=== PATIENT | male | born 1970 | race Asian ===

== ENCOUNTER 2023-07-24 08:40 | Outpatient (AMB) | payer OTHER, SELFPAY ==
[2023-07-24 08:55] VITALS: BP 128/80; PULSE 76; O2SAT 99; BMI 23.6
--- NOTE | 2023-07-24 08:55 | MHC.PC.OV ---
Vital Signs 07/24/23 08:55 Height 5 ft 1 in Weight 125 lb BMI 23.6 BP 128/80 Blood Pressure Location Lt brachial Position Sitting Pulse 76 Pulse Source Pulse Oximeter Pulse Oximetry (%) 99 Oxygen Delivery Method Room Air Intake Visit Reasons: New patient-requesting physical Allergies No Known Allergies Allergy (Verified 07/24/23 09:08) Medication List - Last Reconciled 07/24/23 by BRIDGETT Joseph biotin mcg PO Tobacco use date assessed: 07/24/23 Dental Screening Dental Screen Date: 07/24/23 Did you have a dental visit in the last 12 months?: Yes Did you have a dental problem in the last 6 months where you did not have access to dental care?: No Was dental information given to patient?: Patient has dentist HPI HPI Comments History of Present Illness Details 53-year-old Female new patient presents today to establish care. Past medical history significant for Eye exam: Recommended every couple years. Pap smear: Order entered to establish care with gusset maker, Last pap 5 years ago Mammogram: Patient reports years ago, order entered. Colonoscopy: Patient reports has never had colonoscopy, states she is nervous to have done. Patient offered Cologuard screening and agreeable to this. Order entered. TD:unknown, will request immunization records. Previous pcp: [facility]. [facility] Family History Mother No problems noted. Father No problems noted. Sister No problems noted. Sister No problems noted. Sister No problems noted. Brother No problems noted. Brother No problems noted. Daughter No problems noted. Daughter No problems noted. Daughter No problems noted. Social History (Updated 07/24/23 @ 09:10 by BRIDGETT Joseph) Housing: House Alcohol intake: never Patient Tobacco Use Status: Never used Tobacco e-Cigarette/Vaping Use: Never Used Second Hand Smoke Exposure: No Current occupational status: employed Cognitive needs: No Hearing needs: No Vision needs: Yes Questionnaire PHQ-9 Over the last 2 weeks, how often have you been bothered by any of the following problems? 1. Little interest or pleasure in doing things: not at all 2. Feeling down, depressed, or hopeless: not at all 3. Trouble falling or staying asleep, or sleeping too much: not at all 4. Feeling tired or having little energy: not at all 5. Poor appetite or overeating: not at all 6. Feeling bad about yourself - or that you are a failure or have let yourself or your family down: not at all 7. Trouble concentrating on things, such as reading the newspaper or watching television: not at all 8. Moving or speaking so slowly that other people could have noticed. Or the opposite - being so fidgety or restless that you have been moving around a lot more than usual: not at all 9. Thoughts that you would be better off or of hurting yourself in some way: not at all Total score: 0 Depression Screening Interpretation: Negative 81966 - PHQ-9 Billing: Yes Source: Developed by Drs. Nicolas Garcia, Honey Castañeda, Sedrick Amaya and colleagues, with an educational bipin from [employer]. Thrive Questionnaire Date Thrive assessed: 07/24/23 I am a: Patient What is your living situation today?: I have a steady place to live Within the past 12 months, did the food you bought not last and you didn't have the money to get more?: Never true Within the past 12 months, did you worry whether your food would run out before you got money to buy more?: Never true Do you have trouble paying for medicines?: No Do you have trouble getting transportation to medical appointments?: No Do you have trouble paying your heating and electricity bill?: No Do you have trouble taking care of your child, family member or friend?: No Do you have trouble with day-to-day activities such as bathing, preparing meals, shopping, managing finances, etc.?: No Are you currently unemployed and looking for a job?: No Are you interested in more education?: No Currently or been in a relationship where the following occur: no concerns reported AUDIT C Alcohol Use Questionnaire (AUDIT-C) 1. How often do you have a drink containing alcohol?: Never 3. How often do you have six or more drinks on one occasion?: Never Total Score: 0 SHANNON-7 AMB Questionnaire SHANNON-7 Date SHANNON - 7 assessed: 07/24/23 Feeling nervous, anxious, or on edge: 0 = Not at all Not being able to stop or control worryin = Not at all Worrying too much about different things: 0 = Not at all Trouble relaxin = Not at all Being so restless that it is hard to sit still: 0 = Not at all Becoming easily annoyed or irritable: 0 = Not at all Feeling afraid as if something awful might happen: 0 = Not at all Total SHANNON-7 score (0-4 normal; 5-9 mild; 10-14 moderate; 15-21 severe): 0 Source: Developed by Drs. Nicolas Garcia, Honey Castañeda, Sedrick Amaya and colleagues, with an educational bipin from [employer]. SHANNON-7 Assessment Billing SHANNON-7 Assessment Tool: SHANNON-7 Assessment 52451 Review of Systems Const Denies chills, Denies fatigue, Denies fever(s) and Denies poor appetite Eyes Denies no additional complaints ENT Reports Normal hearing present Card Denies chest pain, Denies syncope, Denies rapid heart rate and Denies dyspnea Resp Denies cough and Denies dyspnea GI Denies change in stool character, Denies constipation, Denies diarrhea, Denies nausea and Denies vomiting Denies dysuria, Denies urinary frequency and Denies urinary urgency Neuro Reports Normal hearing present, Denies confusion and Denies syncope Psych Denies confusion Endo Denies fatigue Physical exam (Primary Care) Vital Signs: Last Vital Signs Pulse 76 07/24/23 08:55 BP 128/80 07/24/23 08:55 Pulse Ox 99 07/24/23 08:55 Oxygen Delivery Method Room Air 07/24/23 08:55 BMI result Body Mass Index 23.6 Tobacco/Smoking Status: Tobacco use Status Tobacco use date assessed 07/24/23 07/24/23 09:03 Patient Tobacco Use Status Never used Tobacco 07/24/23 09:10 e-Cigarette/Vaping Use Never Used 07/24/23 09:10 PHQ-9: PHQ-9 Score PHQ-9: Total score 0 07/24/23 09:13 Depression Screening Interpretation: Negative Thrive Assessment: Date of Thrive Assessment Date Thrive assessed 07/24/23 07/24/23 09:03 Currently or been in a relationship where the following occur: no concerns reported Const General: No confusion Orientation/consciousness: No confusion HENMT Head: Yes normocephalic and Yes atraumatic Ears: external ears normal and TM's normal bilaterally General nose exam: Normal external nose present and Normal nasal mucous membranes and turbinates present Face and sinus: Yes normal facial exam and Yes sinuses nontender Mouth: moist mucous membranes Throat: Yes tonsils normal Eyes Conjunctivae: conjunctivae normal Sclerae: sclerae normal Pupils: Equal, round and reactive pupils present and Pupils normal by confrontation EOM: EOMs intact bilaterally Direct Ophthalmoscopy: normal light reflex Neck Neck: Yes no lymphadenopathy and Yes supple Thyroid: Thyroid normal Chest Chest palpation & inspection: normal inspection of the chest Resp Effort & Inspection: normal respiratory effort Auscultation: clear to auscultation bilaterally, no crackles, no rhonchi and no wheezes Cardio Rate: regular rate Rhythm: regular rhythm Peripheral pulses: radial pulses present and dorsalis pedis present GI Inspection: Yes normal to inspection Palpation (GI): Soft to palpation, nontender and No hepatosplenomegaly present Auscultation: normoactive bowel sounds Skin General skin exam: no rashes or lesions noted Neuro General: No confusion Cranial nerves: Yes Equal, round and reactive pupils present and Yes Normal hearing present Cognition (Neuro): normal cognition Gait exam (Neuro): Normal gait present Motor exam (neuro): 5/5 motor strength present throughout Deep tendon reflexes (DTR's): Right brachioradialis reflex intensity grade: 2+, Left brachioradialis reflex intensity grade: 2+, Right patellar reflex intensity grade: 2+ and Left patellar reflex intensity grade: 2+ Extrem General: No edema Assessment and Plan Assessment & Plan (1) Physical exam, annual: Code(s): Z00.00 - Encounter for general adult medical examination without abnormal findings Plan: Follow up in 1 year Orders: Orders Comprehensive [place]. Panel Fast Today Z13.1 - Encounter for screening for diabetes mellitus Lipid Panel Today Z13.220 - Encounter for screening for lipoid disorders TSH reflex Free T4 Today Z13.29 - Encounter for screening for other suspected endocrine disorder Vitamin D 25-OH Total Today Z13.21 - Encounter for screening for nutritional disorder Complete Blood Count Auto Diff Today Z13.0 - Encounter for screening for diseases of the blood and blood-forming organs and certain disorders involving the immune mechanism MM screening mammo BI Today Z12.31 - Encounter for screening mammogram for malignant neoplasm of breast Referrals Cologuard Test Z12.11 - Encounter for screening for malignant neoplasm of colon SOCIAL SERVICE DIRECTOR Referral Z12.4 - Encounter for screening for malignant neoplasm of cervix Coding Level of Care Code New Pt Prev Care 40-64y(68447) Diagnoses Physical exam, annual Z00.00 Additional Codes SHANNON-7 Assessment Billing - SHANNON-7 Assessment Tool: SHANNON-7 Assessment [id number] ([id number])
== END 2023-07-24 09:21 | disposition home or self-care (01) ==
PROVIDERS: PCP Nurse Practitioner Family; Visit Provider Nurse Practitioner Family
DX: Z00.00 Encounter for general adult medical examination without abnormal findings (principal)
CPT/HCPCS: 99386

== ENCOUNTER 2023-07-24 09:28 | Outpatient (REF) | payer OTHER, SELFPAY ==
[2023-07-24 09:44] LABS: MANUAL DIFF FLAG NO
[2023-07-24 10:04] LABS: Basophils Percent Auto 0.6 % (0-2); Eosinophils Absolute Auto 0.2 X10*3/uL (0.0-0.4); Eosinophils Percent Auto 3.6 % (0-4); Hematocrit 43.1 % (42.0-52.0); Hemoglobin 15.4 g/dl (14.0-18.0); Imm Gran Abs Auto 0.01 X10*3/uL (0.00-0.03); Imm Gran Pct Auto 0.2 % (0.0-0.4); Lymphocytes Absolute Auto 1.6 X10*3/uL (1.2-4.9); Lymphocytes Percent Auto 31.4 % (20-40); Mean Corpuscular HGB Conc 35.7 g/dl (31.0-36.0); Mean Corpuscular Hemoglobin 30.3 pg (27.0-33.0); Mean Corpuscular Volume 84.8 fL (80.0-98.0); Mean Platelet Volume 9.1 fL (9.4-12.4); Monocytes Absolute Auto 0.4 X10*3/uL (0.1-1.2); Monocytes Percent Auto 7.9 % (2-11); Neutrophils Absolute Auto 2.9 x10*3/uL (2.0-8.3); Neutrophils Percent Auto 56.3 % (45-73); Platelet Count 193 X10*3/uL (160-400); Red Blood Count 5.08 X10*6/uL (4.60-5.80); Red Cell Distribution Width 11.5 % (11.0-16.0); White Blood Count 5.1 X10*3/uL (4.8-10.8)
[2023-07-24 10:48] LABS: Alanine Aminotransferase 33 U/L (0-40); Albumin Level 4.4 g/dL (3.5-5.0); Alkaline Phosphatase 82 U/L (39-117); Anion Gap 13 (12-20); Aspartate Amino Transferase 21 U/L (5-37); Bilirubin Total 0.5 mg/dL (0.0-1.0); Blood Urea Nitrogen 14 mg/dL (9-16); Calcium 9.7 mg/dL (8.4-10.2); Carbon Dioxide 24 mmol/L (22-29); Chloride 106 mmol/L (96-108); Cholesterol 207 mg/dL (<200); Estimated Glomerular Filt Rate > 60; Glucose Fasting 125 mg/dL (60-99); HDL Cholesterol 56 mg/dL (>40); LDL Cholesterol Calculated 123 mg/dL (<100); Sodium 139 mmol/L (135-145); Total Protein 7.7 g/dL (6.5-8.0); Triglycerides 142 mg/dL (<150)
[2023-07-24 11:04] LABS: TSH reflex Free T4 0.94 uIU/mL (0.32-4.0)
== END 2023-07-24 09:29 | disposition home or self-care (01) ==
LOC: HO.LAB 09:28
PROVIDERS: PCP Nurse Practitioner Family; Visit Provider Nurse Practitioner Family
DX: Z13.0 Encounter for screening for diseases of the blood and blood-forming organs and certain disorders involving the immune mechanism (principal); Z13.29 Encounter for screening for other suspected endocrine disorder; Z13.1 Encounter for screening for diabetes mellitus; Z13.21 Encounter for screening for nutritional disorder; Z13.220 Encounter for screening for lipoid disorders
CPT/HCPCS: 36415; 80053; 80061; 82306; 84443; 85025

== ENCOUNTER 2023-08-12 07:38 | Outpatient (REF) | payer OTHER, SELFPAY ==
--- NOTE | ~2023-08-12 | MM_ITS ---
EXAMINATION: MM SCREENING DIGITAL BREAST TOMOSYNTHESIS, BILATERAL CLINICAL INFORMATION: Screening. Asymptomatic. COMPARISON: Mammography: This study is compared with prior exams dating back to 2013. TECHNIQUE: Digital breast tomosynthesis is performed in both the craniocaudal and mediolateral oblique views along with computer-aided detection (CAD). Synthesized 2D images are generated from the tomosynthesis. FINDINGS: The breasts are heterogeneously dense, which may obscure small masses (ACR BI-RADS breast composition Category c). There are no significant masses, abnormal calcifications, or other abnormalities. MM/MM tomosynthesis screening BI IMPRESSION: No mammographic evidence of malignancy. ASSESSMENT: BI-RADS BI-RADS 1 - Negative RECOMMENDATION: Routine annual mammography screening. 1 year F/U This examination should not preclude the clinical evaluation of a suspicious palpable abnormality. This patient's information was entered into a reminder system with a target due date for their next mammogram.
[2023-08-12 09:09] LABS: Estimated Average Glucose 128 mg/dL; Hemoglobin A1c % 6.1 % (<6.0)
[2023-08-12 09:27] LABS: Alanine Aminotransferase 30 U/L (0-40); Albumin Level 4.4 g/dL (3.5-5.0); Alkaline Phosphatase 78 U/L (39-117); Anion Gap 13 (12-20); Aspartate Amino Transferase 22 U/L (5-37); Bilirubin Total 0.7 mg/dL (0.0-1.0); Blood Urea Nitrogen 13 mg/dL (9-16); Calcium 9.5 mg/dL (8.4-10.2); Carbon Dioxide 27 mmol/L (22-29); Chloride 105 mmol/L (96-108); Estimated Glomerular Filt Rate > 60; Glucose Fasting 125 mg/dL (60-99); Potassium 4.1 mmol/L (3.3-5.1); Sodium 141 mmol/L (135-145); Total Protein 7.5 g/dL (6.5-8.0)
== END 2023-08-12 07:39 | disposition home or self-care (01) ==
LOC: HO.MAMMO 07:38
PROVIDERS: Visit Provider Nurse Practitioner Family
DX: Z12.31 Encounter for screening mammogram for malignant neoplasm of breast (principal); R73.01 Impaired fasting glucose
CPT/HCPCS: 36415; 77063; 77067; 80053; 83036

== ENCOUNTER → 2023-08-12 08:00 | Outpatient (BNV) | payer OTHER, SELFPAY | PROVIDERS: Visit Provider Radiology Diagnostic Radiology | DX: Z12.31 Encounter for screening mammogram for malignant neoplasm of breast (principal) | CPT/HCPCS: 77063; 77067 ==

== ENCOUNTER 2024-02-10 07:45 | Outpatient (AMB) | payer OTHER, SELFPAY ==
[2024-02-10 07:59] VITALS: BP 124/78; PULSE 65; O2SAT 98; BMI 24.0
--- NOTE | 2024-02-10 07:59 | A.OFFPC_ITS ---
Vital Signs 02/10/24 07:59 Height 5 ft 1 in Weight 127 lb BMI 24.0 BP 124/78 Blood Pressure Location Lt brachial Position Sitting Pulse 65 Pulse Source Pulse Oximeter Pulse Oximetry (%) 98 Oxygen Delivery Method Room Air Intake Visit Reasons: 6 month f/up Allergies No Known Allergies Allergy (Verified 02/10/24 08:16) Medication List - Last Reconciled 02/10/24 by Shubham Nelson MD biotin mcg PO Tobacco use date assessed: 02/10/24 Dental Screening Dental Screen Date: 02/10/24 Did you have a dental visit in the last 12 months?: Yes Did you have a dental problem in the last 6 months where you did not have access to dental care?: No Was dental information given to patient?: Patient has dentist HPI 6 month f/up HPI Details 53-year-old female [facility] to discuss her chronic medical condition. I will be assuming her care as her primary care provider has left the practice. In the last office visit she was found to be prediabetic. No medications have been started. [facility] Medical History (Updated 02/10/24 @ 08:36 by Shubham Nelson MD) Stage 1 presymptomatic normoglycemic type 1 prediabetes Family History Mother No problems noted. Father No problems noted. Sister No problems noted. Sister No problems noted. Sister No problems noted. Brother No problems noted. Brother No problems noted. Daughter No problems noted. Daughter No problems noted. Daughter No problems noted. Social History Housing: House Alcohol intake: never Patient Tobacco Use Status: Never used Tobacco Tobacco use type: Cigarette e-Cigarette/Vaping Use: Never Used Second Hand Smoke Exposure: No Current occupational status: employed Cognitive needs: No Hearing needs: No Vision needs: Yes Questionnaire PHQ-9 Over the last 2 weeks, how often have you been bothered by any of the following problems? 1. Little interest or pleasure in doing things: not at all 2. Feeling down, depressed, or hopeless: not at all 3. Trouble falling or staying asleep, or sleeping too much: not at all 4. Feeling tired or having little energy: not at all 5. Poor appetite or overeating: not at all 6. Feeling bad about yourself - or that you are a failure or have let yourself or your family down: not at all 7. Trouble concentrating on things, such as reading the newspaper or watching television: not at all 8. Moving or speaking so slowly that other people could have noticed. Or the opposite - being so fidgety or restless that you have been moving around a lot more than usual: not at all 9. Thoughts that you would be better off or of hurting yourself in some way: not at all Total score: 0 Depression Screening Interpretation: Negative Depression Screening Done: Yes 36763 - PHQ-9 Billing: Yes Source: Developed by Drs. Nicolas Garcia, Honey Castañeda, Sedrick Amaya and colleagues, with an educational bipin from [employer]. Thrive Questionnaire Date Thrive assessed: 02/10/24 I am a: Patient What is your living situation today?: I have a steady place to live Within the past 12 months, did the food you bought not last and you didn't have the money to get more?: Never true Within the past 12 months, did you worry whether your food would run out before you got money to buy more?: Never true Do you have trouble paying for medicines?: No Do you have trouble getting transportation to medical appointments?: No Do you have trouble paying your heating and electricity bill?: No Do you have trouble taking care of your child, family member or friend?: No Do you have trouble with day-to-day activities such as bathing, preparing meals, shopping, managing finances, etc.?: No Are you currently unemployed and looking for a job?: No Are you interested in more education?: No Currently or been in a relationship where the following occur: no concerns reported THRIVE Score: 0 AUDIT C Alcohol Use Questionnaire (AUDIT-C) 1. How often do you have a drink containing alcohol?: Never 3. How often do you have six or more drinks on one occasion?: Never Total Score: 0 SHANNON-7 AMB Questionnaire SHANNON-7 Date SHANNON - 7 assessed: 02/10/24 Feeling nervous, anxious, or on edge: 0 = Not at all Not being able to stop or control worryin = Not at all Worrying too much about different things: 0 = Not at all Trouble relaxin = Not at all Being so restless that it is hard to sit still: 0 = Not at all Becoming easily annoyed or irritable: 0 = Not at all Feeling afraid as if something awful might happen: 0 = Not at all Total SHANNON-7 score (0-4 normal; 5-9 mild; 10-14 moderate; 15-21 severe): 0 Source: Developed by Drs. Nicolas Garcia, Honey Castañeda, Sedrick Aamya and colleagues, with an educational bipin from [employer]. SHANNON-7 Assessment Billing SHANNON-7 Assessment Tool: SHANNON-7 Assessment 50697 Physical exam (Primary Care) Vital Signs: Last Vital Signs Pulse 65 02/10/24 07:59 BP 124/78 02/10/24 07:59 Pulse Ox 98 02/10/24 07:59 Oxygen Delivery Method Room Air 02/10/24 07:59 BMI result Body Mass Index 24.0 Tobacco/Smoking Status: Tobacco use Status Tobacco use date assessed 02/10/24 02/10/24 08:04 Patient Tobacco Use Status Never used Tobacco 02/10/24 08:01 Tobacco use type Cigarette 02/10/24 08:04 e-Cigarette/Vaping Use Never Used 02/10/24 08:01 PHQ-9: PHQ-9 Score PHQ-9: Total score 0 02/10/24 08:04 Depression Screening Interpretation: Negative Thrive Assessment: Date of Thrive Assessment Date Thrive assessed 02/10/24 02/10/24 08:04 Currently or been in a relationship where the following occur: no concerns reported Const General: cooperative and healthy appearing Nutritional Appearance: well nourished Orientation/consciousness: patient oriented x3 Limitations: no limitations HENMT Head: Yes normal to inspection Eyes General: appearance normal, both eyes and all related structures Neck Neck: Yes normal visual inspection Chest Chest palpation & inspection: normal palpation of entire chest wall Resp Effort & Inspection: normal respiratory effort Neuro General: patient oriented x3 Assessment and Plan Assessment & Plan (1) Stage 1 presymptomatic normoglycemic type 1 prediabetes: Comment: Blood work has been repeated. Patient is up-to-date on mammogram and recent Cologuard test was negative. Code(s): R73.03 - Prediabetes Orders: Orders Liver Panel Today R73.01 - Impaired fasting glucose Lipid Panel Today R73.01 - Impaired fasting glucose Thyroid Stimulating Hormone Today R73.01 - Impaired fasting glucose Hemoglobin A1c Today R73.01 - Impaired fasting glucose Complete Blood Count no Diff Today R73.01 - Impaired fasting glucose Basic Metabolic Panel Today R73.01 - Impaired fasting glucose Microalbumin, Random (w Creat) Today R73.01 - Impaired fasting glucose Coding Level of Care Code Est Pt Level 4 (03766) Diagnoses Stage 1 presymptomatic normoglycemic type 1 prediabetes R73.03 Additional Codes SHANNON-7 Assessment Billing - SHANNON-7 Assessment Tool: SHANNON-7 Assessment [id number] ([id number])
== END 2024-02-10 08:16 | disposition home or self-care (01) ==
PROVIDERS: PCP Internal Medicine; Visit Provider Internal Medicine
DX: R73.03 Prediabetes (principal)
CPT/HCPCS: 99214

== ENCOUNTER 2024-02-10 08:34 | Outpatient (REF) | payer OTHER, SELFPAY ==
[2024-02-10 09:18] LABS: Hematocrit 39.4 % (42.0-52.0); Mean Corpuscular HGB Conc 35.5 g/dl (31.0-36.0); Mean Corpuscular Hemoglobin 30.1 pg (27.0-33.0); Mean Corpuscular Volume 84.7 fL (80.0-98.0); Mean Platelet Volume 9.2 fL (9.4-12.4); Platelet Count 205 X10*3/uL (160-400); Red Blood Count 4.65 X10*6/uL (4.60-5.80); Red Cell Distribution Width 12.4 % (11.0-16.0); White Blood Count 4.8 X10*3/uL (4.8-10.8)
[2024-02-10 09:31] LABS: Estimated Average Glucose 128 mg/dL; Hemoglobin A1c % 6.1 % (<6.0); Total Hemoglobin (HGBA1C) 3592.4778 umol/L
[2024-02-10 10:05] LABS: Anion Gap 13 (12-20); Blood Urea Nitrogen 13 mg/dL (9-16); Carbon Dioxide 25 mmol/L (22-29); Chloride 107 mmol/L (96-108); Sodium 141 mmol/L (135-145)
[2024-02-10 10:06] LABS: Alanine Aminotransferase 28 U/L (0-40); Albumin Level 4.2 g/dL (3.5-5.0); Alkaline Phosphatase 90 U/L (39-117); Aspartate Amino Transferase 19 U/L (5-37); Bilirubin Direct 0.1 mg/dL (0.0-0.5); Bilirubin Total 0.4 mg/dL (0.0-1.0); Calcium 9.1 mg/dL (8.4-10.2); Cholesterol 196 mg/dL (<200); Estimated Glomerular Filt Rate > 60; Glucose Random 116 mg/dL (60-115); HDL Cholesterol 55 mg/dL (>40); LDL Cholesterol Calculated 125 mg/dL (<100); Total Protein 7.3 g/dL (6.5-8.0); Triglycerides 80 mg/dL (<150)
[2024-02-10 10:09] LABS: Thyroid Stimulating Hormone 1.27 uIU/mL (0.32-4.0)
[2024-02-10 10:33] LABS: Creatinine Urine 28.27 mg/dL; Microalbumin Urine < 5.0 mg/L
== END 2024-02-10 08:35 | disposition home or self-care (01) ==
LOC: HO.LAB 08:34
PROVIDERS: PCP Internal Medicine; Visit Provider Internal Medicine
DX: R73.01 Impaired fasting glucose (principal)
CPT/HCPCS: 36415; 80048; 80061; 80076; 82043; 82570; 83036; 84443; 85027

== ENCOUNTER 2024-11-15 07:46 | Outpatient (AMB) | payer OTHER, SELFPAY ==
[2024-11-15 07:58] VITALS: BP 130/70; PULSE 77; O2SAT 98; BMI 24.6
--- NOTE | 2024-11-15 07:58 | MHC.PC.OV ---
Vital Signs 11/15/24 07:58 Height 5 ft 1 in Weight 130 lb BMI 24.6 BP 130/70 Blood Pressure Location Lt brachial Position Sitting Pulse 77 Pulse Source Pulse Oximeter Pulse Oximetry (%) 98 Oxygen Delivery Method Room Air Intake Visit Reasons: Annual Physical Allergies No Known Allergies Allergy (Verified 11/15/24 07:58) Tobacco use date assessed: 02/10/24 Dental Screening Dental Screen Date: 02/10/24 [facility] Medical History (Updated 11/15/24 @ 08:33 by Shubham Nelson MD) Stage 1 presymptomatic normoglycemic type 1 prediabetes Family History Mother No problems noted. Father No problems noted. Sister No problems noted. Sister No problems noted. Sister No problems noted. Brother No problems noted. Brother No problems noted. Daughter No problems noted. Daughter No problems noted. Daughter No problems noted. Social History Housing: House Alcohol intake: never Patient Tobacco Use Status: Never used Tobacco Tobacco use type: Cigarette e-Cigarette/Vaping Use: Never Used Second Hand Smoke Exposure: No Current occupational status: employed Cognitive needs: No Hearing needs: No Vision needs: Yes Questionnaire PHQ-9 Over the last 2 weeks, how often have you been bothered by any of the following problems? 1. Little interest or pleasure in doing things: not at all 2. Feeling down, depressed, or hopeless: not at all 3. Trouble falling or staying asleep, or sleeping too much: not at all 4. Feeling tired or having little energy: not at all 5. Poor appetite or overeating: not at all 6. Feeling bad about yourself - or that you are a failure or have let yourself or your family down: not at all 7. Trouble concentrating on things, such as reading the newspaper or watching television: not at all 8. Moving or speaking so slowly that other people could have noticed. Or the opposite - being so fidgety or restless that you have been moving around a lot more than usual: not at all 9. Thoughts that you would be better off or of hurting yourself in some way: not at all Total score: 0 Depression Screening Interpretation: Negative Depression Screening Done: Yes [id number] - PHQ-9 Billing: Yes Source: Developed by Drs. Nicolas Garcia, Honey Castañeda, Sedrick Amaya and colleagues, with an educational bipin from [employer]. Thrive Questionnaire Date Thrive assessed: 11/15/24 I am a: Patient What is your living situation today?: I have a steady place to live Within the past 12 months, did the food you bought not last and you didn't have the money to get more?: Often true Within the past 12 months, did you worry whether your food would run out before you got money to buy more?: Never true Do you have trouble paying for medicines?: No Do you have trouble getting transportation to medical appointments?: No Do you have trouble paying your heating and electricity bill?: No Do you have trouble taking care of your child, family member or friend?: No Do you have trouble with day-to-day activities such as bathing, preparing meals, shopping, managing finances, etc.?: No Are you currently unemployed and looking for a job?: No Are you interested in more education?: Yes Please select the resources that you would like help with: None Currently or been in a relationship where the following occur: No concerns reported THRIVE Score: 1 AUDIT C Alcohol Use Questionnaire (AUDIT-C) 1. How often do you have a drink containing alcohol?: Never Total Score: 0 SHANNON-7 AMB Questionnaire SHANNON-7 Date SHANNON - 7 assessed: 11/15/24 Feeling nervous, anxious, or on edge: 0 = Not at all Not being able to stop or control worryin = Not at all Worrying too much about different things: 0 = Not at all Trouble relaxin = Not at all Being so restless that it is hard to sit still: 0 = Not at all Becoming easily annoyed or irritable: 0 = Not at all Feeling afraid as if something awful might happen: 0 = Not at all Total SHANNON-7 score (0-4 normal; 5-9 mild; 10-14 moderate; 15-21 severe): 0 Source: Developed by Drs. Nicolas Garcia, Sedrick Bermeo and colleagues, with an educational bipin from [employer]. Physical exam (Primary Care) Vital Signs: Last Vital Signs Pulse 77 11/15/24 07:58 BP 130/70 11/15/24 07:58 Pulse Ox 98 11/15/24 07:58 Oxygen Delivery Method Room Air 11/15/24 07:58 BMI result Body Mass Index 24.6 Tobacco/Smoking Status: Tobacco use Status Tobacco use date assessed 02/10/24 11/15/24 08:02 Patient Tobacco Use Status Never used Tobacco 11/15/24 08:02 Tobacco use type Cigarette 11/15/24 08:02 e-Cigarette/Vaping Use Never Used 11/15/24 08:02 PHQ-9: PHQ-9 Score PHQ-9: Total score 0 11/15/24 08:02 Depression Screening Interpretation: Negative Thrive Assessment: Date of Thrive Assessment Date Thrive assessed 11/15/24 11/15/24 08:02 Currently or been in a relationship where the following occur: No concerns reported Coding Level of Care Code Est Pt Prev Care 40-64y(43395) Diagnoses Encounter for colorectal cancer screening using Cologuard test Z12.11; Z12.12 Annual physical exam Z00.00 Additional Codes PHQ-9 - 77008 - PHQ-9 Billing: Yes ([id number]) Assessment & Plan Assessment & Plan (1) Encounter for colorectal cancer screening using Cologuard test: Onset Date: ~08/08/23 Code(s): Z12.11 - Encounter for screening for malignant neoplasm of colon; Z12.12 - Encounter for screening for malignant neoplasm of rectum Category: Medical Plan: See Below (2) Annual physical exam: Code(s): Z00.00 - Encounter for general adult medical examination without abnormal findings Plan: History of Present Illness The patient is a 54-year-old female presenting with a request for a physical examination. She has expressed concerns regarding episodes of dizziness, which she suspects may be related to high blood pressure. She reports a single instance of home blood pressure measurement that she recalls seemed elevated; however, she cannot recollect the exact value. The dizziness has not been evaluated further. Her blood pressure readings in the office have been within normal range. There is a prior history of hyperlipidemia noted, for which monitoring has been suggested. She last had blood work done in January, which was reportedly normal at that time, except for cholesterol levels that necessitate a reevaluation. Additionally, she confirmed having undergone a mammogram in 2022, yet not for the current year. Her last cervical pap smear is overdue due to a cancellation. Regarding her vision, she reports good distance vision but requires glasses for near tasks. Social History - Employed at a [employer], working long hours without difficulty. - Does not take any prescription medications, only Biotin supplements. - Visually impaired requiring corrective glasses for near tasks, unaffected while driving, including at night. - Declined flu vaccination, noting prior receipt during . - Lives independently and has two daughters, both of them are pursuing careers as a physician diversional therapist's assistant. Review of Systems - Cardiovascular: Reports dizziness, possibly related to high blood pressure. - Ophthalmologic: Reports need for glasses for near vision; no issues with distant vision. - Musculoskeletal: Denies difficulty with physical tasks or employment. - Neurologic: Denies other neurological symptoms aside from dizziness. - Gynecologic: Denies recent Pap smear; overdue due to appointment cancellation. Physical Exam General: Cooperative and healthy appearing Nutritional Appearance: Well nourished Orientation/consciousness: Patient oriented x3 Limitations: No limitations Head: Normal to inspection General: Appearance normal, both eyes and all related structures Neck: Normal visual inspection Chest: Normal palpation of entire chest wall Respiratory: Normal respiratory effort Neurology: Patient oriented x3 Results - Labs in January confirmed normal with exception of hyperlipidemia. - Cologuard test normal. Plan - Initiative to monitor blood pressure at home and record readings for evaluation of suspected hypertension. - Reassessment of hyperlipidemia with fasting blood work, including lipid profile. - Scheduling of a mammogram since it remains due for the current year. - Recommendation to reschedule and complete cervical screening Pap smear). - No treatment required for visual impairment currently managed with corrective glasses. Patient was informed and verbally consented to the use of an ambient scribe for clinic note documentation during this visit. Discussion Notes During the visit, I discussed with the patient the need for more consistent monitoring of her blood pressure at home due to episodes of dizziness and the importance of recording these values for further assessment. We talked about repeating her lipid profile as prior concerns about cholesterol levels need reevaluation. I advised scheduling a mammogram since she has not completed one this year, and I recommended following up on her overdue cervical pap smear. The patient expressed understanding and agreement with these suggestions. I respected her decision to decline the flu shot, noting her past receipt during . We reviewed her current health status, and I confirmed there are no immediate concerns beyond those mentioned. Patient Instructions - Monitor and document blood pressure readings at home, bringing recorded values to next appointment. - Complete fasting blood work for hyperlipidemia assessment. - Schedule and complete a mammogram this year. - Reschedule cervical Pap smear through [facility] office. - Use corrective glasses as needed for near tasks. - Follow-up in one year if no new symptoms arise or sooner if necessary. Orders: Orders Complete Blood Count no Diff Today E78.5 - Hyperlipidemia, unspecified Basic Metabolic Panel Today E78.5 - Hyperlipidemia, unspecified Lipid Panel Today E78.5 - Hyperlipidemia, unspecified UA and rflx microscopic Today E78.5 - Hyperlipidemia, unspecified Liver Panel Today E78.5 - Hyperlipidemia, unspecified Thyroid Stimulating Hormone Today E78.5 - Hyperlipidemia, unspecified MM screening mammo BI Today Z12.31 - Encounter for screening mammogram for malignant neoplasm of breast Referrals [facility] Referral Z12.4 - Encounter for screening for malignant neoplasm of cervix
== END 2024-11-15 08:17 | disposition home or self-care (01) ==
PROVIDERS: PCP Internal Medicine; Visit Provider Internal Medicine
DX: Z12.11 Encounter for screening for malignant neoplasm of colon (principal); Z12.12 Encounter for screening for malignant neoplasm of rectum; Z00.00 Encounter for general adult medical examination without abnormal findings

== ENCOUNTER 2024-11-15 07:46 | Outpatient (REF) | payer OTHER, SELFPAY ==
[2024-11-15 09:34] LABS: Hematocrit 41.3 % (37.0-47.0); Hemoglobin 14.4 g/dl (12.0-16.0); Mean Corpuscular HGB Conc 34.9 g/dl (31.0-35.0); Mean Corpuscular Hemoglobin 29.4 pg (27.0-33.0); Mean Corpuscular Volume 84.3 fL (80.0-98.0); Mean Platelet Volume 9.4 fL (9.4-12.3); Platelet Count 200 X10*3/uL (160-400); Red Cell Distribution Width 11.9 % (11.0-16.0); White Blood Count 4.6 X10*3/uL (4.8-10.8)
[2024-11-15 10:07] LABS: Alanine Aminotransferase 50 U/L (0-31); Albumin Level 4.5 g/dL (3.5-5.0); Alkaline Phosphatase 78 U/L (39-117); Anion Gap 12 (12-20); Aspartate Amino Transferase 31 U/L (5-31); Bilirubin Direct 0.2 mg/dL (0.0-0.5); Bilirubin Total 0.5 mg/dL (0.0-1.0); Blood Urea Nitrogen 10 mg/dL (9-16); Calcium 9.7 mg/dL (8.4-10.2); Carbon Dioxide 24 mmol/L (22-29); Chloride 106 mmol/L (96-108); Cholesterol 206 mg/dL (<200); Estimated Glomerular Filt Rate > 60; Glucose Random 132 mg/dL (60-115); HDL Cholesterol 51 mg/dL (>40); LDL Cholesterol Calculated 112 mg/dL (<100); Sodium 138 mmol/L (135-145); Total Protein 7.7 g/dL (6.5-8.0); Triglycerides 216 mg/dL (<150)
[2024-11-15 10:07] LABS: Appearance Urine Clear; Color Urine Yellow; Glucose Urine UA Negative (Negative); Leukocyte Esterase Urine Negative (Negative); Nitrite Urine Negative (Negative); PH 6.5 (5.0-9.0); Urine Blood Negative (Negative); Urine Ketones Negative (Negative); Urine Protein Negative (Neg-Trace)
[2024-11-15 10:29] LABS: Thyroid Stimulating Hormone 1.56 uIU/mL (0.32-4.0)
[2024-11-15 12:21] LABS: Estimated Average Glucose 157 mg/dL; Hemoglobin A1C 199.6535 umol/L; Hemoglobin A1c % 7.1 % (<6.0); Total Hemoglobin (HGBA1C) 3716.0917 umol/L
== END 2024-11-15 07:47 | disposition home or self-care (01) ==
LOC: HO.LAB 07:46
PROVIDERS: PCP Internal Medicine; Visit Provider Internal Medicine
DX: Z00.00 Encounter for general adult medical examination without abnormal findings (principal); E78.5 Hyperlipidemia, unspecified
CPT/HCPCS: 36415; 80048; 80061; 80076; 81003; 83036; 84443; 85027; 96127; 99396

== ENCOUNTER 2024-11-25 08:10 | Outpatient (AMB) | payer OTHER, SELFPAY ==
--- NOTE | 2024-11-25 08:31 | A.OFFPC_ITS ---
Vital Signs 11/25/24 08:33 Height 5 ft 1 in Weight 129 lb BMI 24.4 BP 112/72 Blood Pressure Location Lt brachial Position Sitting Pulse 69 Pulse Source Pulse Oximeter Pulse Oximetry (%) 97 Oxygen Delivery Method Room Air Intake Visit Reasons: follow up Intake Note: Patient is here to follow up on IFG, BP reading. Nanofabrication Specialist Required: No Fulfillment Associate: Not Required per policy Accompanied by: Self / Same As Patient Allergies No Known Allergies Allergy (Verified 11/25/24 09:40) Medication List - Last Reconciled 11/25/24 by Nicole Julio PA-C biotin mcg PO metformin ER 500 mg PO QPM Tobacco use date assessed: 11/25/24 Dental Screening Dental Screen Date: 02/10/24 [facility] Medical History (Updated 11/25/24 @ 09:40 by Nicole Julio PA-C) Stage 1 presymptomatic normoglycemic type 1 prediabetes Surgical History (Updated 11/25/24 @ 08:37 by ADRY Kelley) History of 3 sections Family History Mother No problems noted. Father No problems noted. Sister No problems noted. Sister No problems noted. Sister No problems noted. Brother No problems noted. Brother No problems noted. Daughter No problems noted. Daughter No problems noted. Daughter No problems noted. Social History Housing: House Alcohol intake: never Patient Tobacco Use Status: Never used Tobacco Tobacco use type: Cigarette e-Cigarette/Vaping Use: Never Used Second Hand Smoke Exposure: No service: No Current occupational status: employed Cognitive needs: No Hearing needs: No Vision needs: Yes Questionnaire Thrive Questionnaire Date Thrive assessed: 11/15/24 I am a: Patient What is your living situation today?: I have a steady place to live Within the past 12 months, did the food you bought not last and you didn't have the money to get more?: Often true Within the past 12 months, did you worry whether your food would run out before you got money to buy more?: Never true Do you have trouble paying for medicines?: No Do you have trouble getting transportation to medical appointments?: No Do you have trouble paying your heating and electricity bill?: No Do you have trouble taking care of your child, family member or friend?: No Do you have trouble with day-to-day activities such as bathing, preparing meals, shopping, managing finances, etc.?: No Are you currently unemployed and looking for a job?: No Are you interested in more education?: Yes Please select the resources that you would like help with: None Currently or been in a relationship where the following occur: No concerns reported THRIVE Score: 1 SHANNON-7 AMB Questionnaire SHANNON-7 Date SHANNON - 7 assessed: 11/15/24 Source: Developed by Drs. Nicolas Garcia, Honey Castañeda, Sedrick Amaya and colleagues, with an educational bipin from [employer]. Physical exam (Primary Care) Vital Signs: Last Vital Signs Pulse 69 11/25/24 08:33 BP 112/72 11/25/24 08:33 Pulse Ox 97 11/25/24 08:33 Oxygen Delivery Method Room Air 11/25/24 08:33 BMI result Body Mass Index 24.4 Tobacco/Smoking Status: Tobacco use Status Tobacco use date assessed 11/25/24 11/25/24 08:39 Patient Tobacco Use Status Never used Tobacco 11/25/24 08:32 Tobacco use type Cigarette 11/25/24 08:32 e-Cigarette/Vaping Use Never Used 11/25/24 08:32 Thrive Assessment: Date of Thrive Assessment Date Thrive assessed 11/15/24 11/25/24 08:32 Currently or been in a relationship where the following occur: No concerns reported Coding Level of Care Code Est Pt Level 4 (86491) Complex EM visit Add On G2211 Diagnoses New onset type 2 diabetes mellitus E11.9 Hyperlipidemia E78.5 Assessment & Plan Assessment & Plan (1) New onset type 2 diabetes mellitus: Code(s): E11.9 - Type 2 diabetes mellitus without complications Category: Medical (2) Hyperlipidemia: Code(s): E78.5 - Hyperlipidemia, unspecified Category: Medical Plan Plan - Initiate Metformin 500 mg orally at night to manage Type 2 Diabetes Mellitus. Discussed potential side effects of metformin and patient is instructed to call us and inform us of any side effects. - Recommend lifestyle modifications including dietary adjustment to limit sugar and carbohydrate intake to manage Hyperlipidemia. - Encourage regular physical activity to enhance cardiovascular health and aid in blood sugar and cholesterol management. - Reassess Hemoglobin A1c and lipid profile in 3 months. - Monitor blood pressure regularly. No medication initiation unless persistently elevated blood pressure is noted upon further evaluation. Medications: New metformin ER 500 mg PO QPM 90 tabs 0RF Scribe Plan - Not visible on output: History of Present Illness The patient is a 54-year-old female presenting for a follow up for new onset Diabetes confirmed with A1C level of 7.1 from last Physical Exam on 11/15/2024. The patient was informed of a Hemoglobin A1c level of 7%, indicative of Type 2 Diabetes Mellitus diagnosis. She reports occasional dizziness, but does not generally experience increased thirst or frequent urination, except when consuming large amounts of water. Her current blood sugar management history is unclear. Her Cholesterol levels were noted to be elevated; total cholesterol measured at 206 mg/dL and triglycerides at 216 mg/dL. HDL 51. She does not report symptoms directly attributable to hyperlipidemia but acknowledges a propensity for consuming sugars and other high-carbohydrate foods, such as pasta. She denies r egular soda consumption and practices moderate dietary restraint. Social History - The patient denies consumption of soda or sugary beverages and mentions drinking tea and water instead. - She reports infrequent exercise, describing herself as lazy, and is advised to increase activity levels. - Expresses difficulty in avoiding chocolate and other sweets due to personal preference. Review of Systems - General: Denies increased thirst. - Gastrointestinal: Reports no abdominal pain. - Genitourinary: Reports increased frequency of urination with high fluid intake. Physical Exam Appearance: Alert. Oriented X3. No acute distress. Head: Normal external exam. Normocephalic. Atraumatic. Eyes: Pupils are equal, round, and reactive to light. Extraocular movements intact. Conjunctiva and sclera normal. Eyelids normal. Ears: External auditory canal normal. Throat: Pharynx normal. Uvula midline. Moist mucous membranes. No trismus noted. No drooling noted. No muffled voice noted. Neck: Normal inspection. Neck supple. Full range of motion. No meningeal signs. Cardiovascular: Normal heart rate and rhythm. Heart sound normal. No murmurs noted. Pulses normal throughout. Respiratory: No respiratory distress. Painless inspiration. Breath sounds normal. No wheezes/rales/rhonchi noted. Chest nontender. No accessory muscle usage noted or decreased air movement noted. Abdomen: Soft and nontender. No distention noted. No organomegaly noted. No visible injury noted. Back: Full range of motion noted. Skin: Skin warm and dry. Normal skin color. Normal skin turgor. No rashes/lesions/lacerations noted. Extremities: Extremities exhibit normal range of motion. Extremities nontender. Neuro: Oriented X 3. No motor deficit. No sensory deficit. Reflexes normal. Results - Labs: Hemoglobin A1c: 7% - Labs: Total Cholesterol: 206 mg/dL - Labs: Triglycerides: 216 mg/dL - Labs: HDL 51 - Labs: LDL 112 Plan - Initiate Metformin 500 mg orally at night to manage Type 2 Diabetes Mellitus. Discussed potential side effects of metformin and patient is instructed to call us and inform us of any side effects. - Recommend lifestyle modifications including dietary adjustment to limit sugar and carbohydrate intake to manage Hyperlipidemia. - Encourage regular physical activity to enhance cardiovascular health and aid in blood sugar and cholesterol management. - Reassess Hemoglobin A1c and lipid profile in 3 months. - Monitor blood pressure regularly. No medication initiation unless persistently elevated blood pressure is noted upon further evaluation. Patient was informed and verbally consented to the use of an ambient scribe for clinic note documentation during this visit. Discussion Notes I discussed with the patient the diagnosis of Type 2 Diabetes Mellitus given the Hemoglobin A1c value of 7%. We outlined a treatment plan consisting of Metformin 500 mg daily, to be taken at night to mitigate gastrointestinal side effects. The necessity of dietary modification and an increase in physical activity were emphasized to aid in the management of both diabetes and hyperlipidemia. We reviewed avoidance of sugary and high-carbohydrate foods, encouraging the consumption of healthier alternatives like fruits and vegetables. The patient was informed of the potential need for additional medication if lifestyle modifications and Metformin do not adequately control blood glucose levels. We agreed on follow-up blood tests in 3 months to reassess. Additionally, the patient?s slightly elevated blood pressure will be monitored closely, with the intent to defer medication initiation at this stage. Patient Instructions - Begin Metformin 500 mg at bedtime. - Adopt a low-sugar, low-carbohydrate diet, focusing on fruits, vegetables, lean proteins, and whole grains. - Increase physical activity to at least one hour per week. - Monitor for symptoms of hypoglycemia. - Schedule a follow-up for laboratory tests in three months. - Notify the clinic if experiencing persistent elevated blood pressure or any side effects from Metformin.
[2024-11-25 08:33] VITALS: BP 112/72; PULSE 69; O2SAT 97; BMI 24.4
== END 2024-11-25 09:09 | disposition home or self-care (01) ==
PROVIDERS: PCP Internal Medicine; Visit Provider Internal Medicine
DX: E11.9 Type 2 diabetes mellitus without complications (principal); E78.5 Hyperlipidemia, unspecified

== ENCOUNTER → 2024-11-25 08:10 | Outpatient (BNVA) | payer OTHER, SELFPAY | PROVIDERS: PCP Internal Medicine; Visit Provider Internal Medicine | DX: E11.9 Type 2 diabetes mellitus without complications (principal); E78.00 Pure hypercholesterolemia, unspecified | CPT/HCPCS: 99212 ==

== ENCOUNTER 2025-03-10 08:05 | Outpatient (AMB) | payer OTHER, SELFPAY ==
--- OUTSIDE RECORDS SUMMARY | 2025-03-10 08:12 | XMS_ITS | Clinical Summary ---
Author Organization [facility] Address [address] [place] [address] Care Team Providers Care Hand Sample Maker Name Role Phone Danyell Jefferson [facility] Primary Care Provider [phone] Source Comments PLEASE NOTE, if this patient is a minor, it may be UNLAWFUL to discuss sensitive information that is contained in these records (such as FAMILY PLANNING, MENTAL HEALTH or SUBSTANCE ABUSE) with the minor patient's parent or other person without the patient's specific authorization.[facility] Allergies No known active allergies Medications sulfamethoxazol e-trimethoprim (BACTRIM DS,SEPTRA DS) 800-160 mg tabletIndicatio ns:UTI (lower urinary tract infection) Take 1 Tab by mouth 2 (two) times daily. 14 Tab 0 4 Active metroNIDAZOLE (FLAGYL) 500 mg tabletIndicatio ns:BV (bacterial vaginosis) Take 1 Tab by mouth 2 (two) times daily Avoid alcohol while taking and for 72 hours following last dose. 15 Tab 7 Active Active Problems No known active problems Immunizations Immunization Administration Dates Next Due TDAP 09/04/2017 Social History Tobacco Use Types Packs/Day Years Used Date Smoking Tobacco: Never Alcohol Use Standard Drinks/Week Comments No 0 (1 standard drink = 0.6 oz pur e alcohol) Social Connections Answer Date Recorded Social Connections and Isolation 0 07/24/2019 Financial Resource Strain Answer Date R ecorded Financial Resource Strain 0 2018 Stress Answer Date Recorded Stress 0 07/24/2019 Physical Activity Answer Date Recorded Physical Activity 0 07/24/2019 Food Insecurity Answer Date Recorded Food 0 07/24/2019 Transportation Needs Answer Date Record ed Transportation 0 07/24/2019 Housing Stability Answer Date Recorded Housing 0 07/24/2019 Safety and Environment Answer Date Justo rded Safety 0 07/24/2019 Utilities Answer Date Recorded Utilities 0 07/24/2019 Employment Answer Date Recorded Employment 0 07/24/2019 Comments No Sex and Gender Information Value Date Recorded Sex Assigned at Not on file Legal Sex Female 11:36 AM PDT Gender Identity Not on file Sexual Orientation Not on file Last Filed Vital Signs Vital Sign Reading Time Taken Comments Blood Pressure 122/82 09/04/2017 9:00 AM EDT Pulse 86 09/04/2017 9:00 AM EDT Temperature 36.1 ??C (97 ??F) 09/23/2014 9:11 AM EDT Respiratory Rate 16 09/04/2017 9:00 AM EDT Oxygen Saturation - - Inhaled Oxygen Concentration - - Weight 53.1 kg (117 lb) 09/04/2017 9:00 AM EDT Height 157.5 cm (5' 2 ) 09/04/2017 9:00 AM EDT Body Mass Index 21.4 09/04/2017 9:00 AM EDT Plan of Treatment Not on file Insurance [place] MEDICA[place] Care Teams Hand Sample Maker Relationship Specialty Start Date End Date Danyell Jefferson FNP [address] [place] [id number] PCP - General 01/26/19
--- NOTE | 2025-03-10 08:19 | MHC.OFFVIS ---
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 She is doing well with no workforce staffing advisor concerns. Currently sexually active. Denies any vaginal dryness or irritation. STI testing offered; she accepts, declines bloodwork. Attempting to eat a healthy diet, and stays active with exercise. Last pap smear; >10yrs. ago. Last mammogram; 2022. Colonoscopy is UTD. Denies any family history of breast, ovarian or colon cancer. [facility] Medical History Stage 1 presymptomatic normoglycemic type 1 prediabetes Surgical History History of 3 sections Family History Mother No problems noted. Father No problems noted. Sister No problems noted. Sister No problems noted. Sister No problems noted. Brother No problems noted. Brother No problems noted. Daughter No problems noted. Daughter No problems noted. Daughter No problems noted. Social History Housing: House Alcohol intake: never Patient Tobacco Use Status: Never used Tobacco Tobacco use type: Cigarette e-Cigarette/Vaping Use: Never Used Second Hand Smoke Exposure: No service: No Current occupational status: employed Cognitive needs: No Hearing needs: No Vision needs: Yes Female Reproductive History Menstrual Menopause type: natural Total pregnancies: 3 Full term: 3 Number of Living Children: 3 Date of Mammogram: 08/12/23 (Birad 1) Review of Systems Const All systems reviewed & are unremarkable except as noted in HPI and below Reports as per HPI Eyes Reports no additional complaints ENT Reports no additional complaints Card Reports no additional complaints Resp Reports no additional complaints GI Reports as per HPI and Reports no additional complaints Reports as per HPI Musc Reports no additional complaints Skin/Breast Reports as per HPI Neuro Reports no additional complaints Psych Reports no additional complaints Endo Reports no additional complaints Matt/Lymph Reports no additional complaints Aller/Immun Reports no additional complaints Physical Exam Vital Signs: Last Vital Signs BP 110/74 03/10/25 08:20 BMI result Body Mass Index 23.0 Const General: cooperative, healthy appearing, no acute distress, well developed and alert Orientation/consciousness: patient oriented x3 HEENT Head: Yes normal to inspection Eyes General: appearance normal, both eyes and all related structures Neck Neck: Yes normal visual inspection Thyroid: Thyroid normal Chest Chest palpation & inspection: normal inspection of the chest and other (no puckering, dimpling, peau de orange, retraction, discharge, masses) Breast/axilla inspection: normal inspection of the breasts Breast/axilla palpation: normal palpation of the breasts Resp Effort & Inspection: normal respiratory effort GI Inspection: Yes normal to inspection Palpation (GI): Soft to palpation Rectal Exam - Female: deferred General: Yes bladder normal to palpation External Female Exam: normal external appearance and normal appearance of the urethra Speculum Exam - Vagina: normal appearance of the vagina, normal palpation and normal vaginal discharge Speculum Exam - Cervix: normal appearance of the cervix, normal palpation and Other cervical findings present (Bled slightly with Pap) Bimanual exam- vagina & uterus: normal bimanual exam, normal palpation, uterine size normal, bladder normal to palpation, normal palpation and non-tender Bimanual Exam- Adnexa, other: no masses Skin General skin exam: no rashes or lesions noted Rashes: no rashes Neuro General: patient oriented x3 Cognition (Neuro): normal cognition Extrem General: Yes normal to inspection Psych Attitude: cooperative Thought process: Normal thought process present Assessment & Plan Assessment & Plan (1) Encounter for well woman exam with routine gynecological exam: Code(s): Z01.419 - Encounter for gynecological examination (general) (routine) without abnormal findings Category: Medical Plan Discussed: Current recommendations for pap smears per ASCCP guidelines. Breast awareness, periodic self breast exams and yearly mammogram. Mammogram ordered. Maintain a healthy lifestyle, well balanced diet including Calcium 1,200 mg and Vitamin D 600 IU daily, and routine exercise. Handouts given. Use of condoms for STI prevention if indicated. Contact the office with any postmenopausal bleeding. Patient verbalizes understanding and agrees to the plan of care. She was given opportunity to ask questions and all questions were answered to the best of my ability. RTO in 1 year for annual workforce staffing advisor exam. This note is constructed using voice recognition software. While every effort has been made to ensure accuracy, aviation medicine specialist errors may have been included. Orders: Orders MM tomosynthesis screening BI Today Z12.31 - Encounter for screening mammogram for malignant neoplasm of breast Coding Level of Care Code New Pt Prev Care 40-64y(46711) Diagnoses Encounter for well woman exam with routine gynecological exam Z01.419
[2025-03-10 08:20] VITALS: BP 110/74; BMI 23.0
== END 2025-03-10 09:10 | disposition home or self-care (01) ==
LOC: HO.HWS 08:06
PROVIDERS: PCP Internal Medicine; Visit Provider Advanced Practice Midwife
DX: Z01.419 Encounter for gynecological examination (general) (routine) without abnormal findings (principal)
CPT/HCPCS: 99386; 99459

== ENCOUNTER 2025-03-10 08:05 | Outpatient (REF) | payer OTHER, SELFPAY ==
--- OUTSIDE RECORDS SUMMARY | 2025-03-10 10:26 | XMS_ITS | Clinical Summary ---
Author Organization [facility] Address [address] [place] [address] Care Team Providers Care Rn Documentation Name Role Phone Danyell Jefferson [facility] Primary Care Provider [phone] Source Comments PLEASE NOTE, if this patient [...] Plan of Treatment Not on file Insurance [place] MEDICA[place] Care Teams Rn Documentation Relationship Specialty Start Date End Date Danyell Jefferson FNP [address] [place] [id number] PCP - General 01/26/19
[2025-03-10 13:29] LABS: Bacterial Vaginosis PCR NEGATIVE (Negative); Candida Group PCR NOT DETECTED (Not Detect); Candida glab krusei PCR NOT DETECTED (Not Detect); Trichomonas vaginalis PCR NOT DETECTED (Not Detect)
[2025-03-10 14:00] LABS: CT PCR NOT DETECTED (Not Detect.); NG PCR NOT DETECTED (Not Detect.)
== END 2025-03-10 08:06 | disposition home or self-care (01) ==
LOC: HO.LAB 08:05
PROVIDERS: PCP Internal Medicine; Visit Provider Advanced Practice Midwife
DX: Z01.419 Encounter for gynecological examination (general) (routine) without abnormal findings (principal); Z20.2 Contact with and (suspected) exposure to infections with a predominantly sexual mode of transmission
CPT/HCPCS: 81515; 87491; 87591; 87626; 88175; 99386; 99459

== ENCOUNTER 2025-03-10 09:28 | Outpatient (REF) | payer OTHER, SELFPAY ==
[2025-03-15 14:17] LABS: HPV Genotype 16 Negative (Negative); HPV Genotype 18 Negative (Negative); HPV High Risk Negative (Negative)
== END 2025-03-10 09:29 | disposition home or self-care (01) ==
LOC: HO.LNP 09:28
PROVIDERS: Visit Provider Advanced Practice Midwife
DX: Z01.419 Encounter for gynecological examination (general) (routine) without abnormal findings (principal); Z11.51 Encounter for screening for human papillomavirus (HPV)
CPT/HCPCS: 87626; 88175

== ENCOUNTER 2025-03-17 07:46 | Outpatient (AMB) | payer OTHER, SELFPAY ==
--- OUTSIDE RECORDS SUMMARY | 2025-03-17 07:50 | XMS_ITS | Clinical Summary ---
Author Organization [facility] Address [address] [place] [address] Care Team Providers Care Coverstitch Binder Name Role Phone Danyell Jefferson [facility] Primary Care Provider [phone] Source Comments PLEASE NOTE, if this patient [...] Plan of Treatment Not on file Insurance [place] MED[place] Care Teams Coverstitch Binder Relationship Specialty Start Date End Date Danyell Jefferson FNP [address] [place] [id number] PCP - General 01/26/19
[2025-03-17 08:08] VITALS: BP 120/60; PULSE 71; TEMP 36.2; O2SAT 97; BMI 23.1
--- NOTE | 2025-03-17 08:08 | MHC.PC.OV ---
Vital Signs 03/17/25 08:08 Height 5 ft 1 in Weight 122 lb 8 oz BMI 23.1 BP 120/60 Blood Pressure Location Rt brachial Position Sitting Pulse 71 Pulse Source Pulse Oximeter Temp 97.1 F Temp Source Temporal Artery Scan Pulse Oximetry (%) 97 Oxygen Delivery Method Room Air Intake Visit Reasons: 3mth f/u Intake Note: Patient is here to follow up on DM. Special Effects Specialist Required: No Residential Youth Counselor: Not Required per policy Accompanied by: Self / Same As Patient Allergies No Known Allergies Allergy (Verified 03/17/25 08:09) Tobacco use date assessed: 03/17/25 Dental Screening Dental Screen Date: 03/17/25 Did you have a dental visit in the last 12 months?: Yes Did you have a dental problem in the last 6 months where you did not have access to dental care?: No Was dental information given to patient?: Patient has dentist [facility] Medical History Stage 1 presymptomatic normoglycemic type 1 prediabetes Surgical History History of 3 sections Family History Mother No problems noted. Father No problems noted. Sister No problems noted. Sister No problems noted. Sister No problems noted. Brother No problems noted. Brother No problems noted. Daughter No problems noted. Daughter No problems noted. Daughter No problems noted. Social History Housing: House Alcohol intake: never Patient Tobacco Use Status: Never used Tobacco Tobacco use type: Cigarette e-Cigarette/Vaping Use: Never Used Second Hand Smoke Exposure: No service: No Current occupational status: employed Cognitive needs: No Hearing needs: No Vision needs: Yes Questionnaire PHQ-9 Over the last 2 weeks, how often have you been bothered by any of the following problems? 1. Little interest or pleasure in doing things: not at all 2. Feeling down, depressed, or hopeless: not at all 3. Trouble falling or staying asleep, or sleeping too much: not at all 4. Feeling tired or having little energy: not at all 5. Poor appetite or overeating: not at all 6. Feeling bad about yourself - or that you are a failure or have let yourself or your family down: not at all 7. Trouble concentrating on things, such as reading the newspaper or watching television: not at all 8. Moving or speaking so slowly that other people could have noticed. Or the opposite - being so fidgety or restless that you have been moving around a lot more than usual: not at all 9. Thoughts that you would be better off or of hurting yourself in some way: not at all Total score: 0 Depression Screening Interpretation: Negative Depression Screening Done: Yes [id number] - PHQ-9 Billing: Yes Source: Developed by Drs. Nicolas Garcia, Honey Castañeda, Sedrick Amaya and colleagues, with an educational bipin from [employer]. Thrive Questionnaire Date Thrive assessed: 03/17/25 I am a: Patient What is your living situation today?: I have a steady place to live Within the past 12 months, did the food you bought not last and you didn't have the money to get more?: Often true Within the past 12 months, did you worry whether your food would run out before you got money to buy more?: Never true Do you have trouble paying for medicines?: No Do you have trouble getting transportation to medical appointments?: No Do you have trouble paying your heating and electricity bill?: No Do you have trouble taking care of your child, family member or friend?: No Do you have trouble with day-to-day activities such as bathing, preparing meals, shopping, managing finances, etc.?: No Are you currently unemployed and looking for a job?: No Are you interested in more education?: Yes Please select the resources that you would like help with: None Currently or been in a relationship where the following occur: No concerns reported THRIVE Score: 1 AUDIT C Alcohol Use Questionnaire (AUDIT-C) 3. How often do you have six or more drinks on one occasion?: Never Total Score: 0 SHANNON-7 AMB Questionnaire SHANNON-7 Date SHANNON - 7 assessed: 03/17/25 Feeling nervous, anxious, or on edge: 0 = Not at all Not being able to stop or control worryin = Not at all Worrying too much about different things: 0 = Not at all Trouble relaxin = Not at all Being so restless that it is hard to sit still: 0 = Not at all Becoming easily annoyed or irritable: 0 = Not at all Feeling afraid as if something awful might happen: 0 = Not at all Total SHANNON-7 score (0-4 normal; 5-9 mild; 10-14 moderate; 15-21 severe): 0 Source: Developed by Drs. Nicolas Garcia, Honey Castañeda, Sedrick Amaya and colleagues, with an educational bipin from [employer]. Physical exam (Primary Care) Vital Signs: Last Vital Signs Temp 97.1 F 03/17/25 08:08 Pulse 71 03/17/25 08:08 BP 120/60 03/17/25 08:08 Pulse Ox 97 03/17/25 08:08 Oxygen Delivery Method Room Air 03/17/25 08:08 BMI result Body Mass Index 23.1 Tobacco/Smoking Status: Tobacco use Status Tobacco use date assessed 03/17/25 03/17/25 08:10 Patient Tobacco Use Status Never used Tobacco 03/17/25 08:10 Tobacco use type Cigarette 03/17/25 08:10 e-Cigarette/Vaping Use Never Used 03/17/25 08:10 PHQ-9: PHQ-9 Score PHQ-9: Total score 0 03/17/25 08:18 Depression Screening Interpretation: Negative Thrive Assessment: Date of Thrive Assessment Date Thrive assessed 03/17/25 03/17/25 08:10 Currently or been in a relationship where the following occur: No concerns reported Results AMB Hemoglobin A1c AMB Hemoglobin A1c 6.4 % Last Edit by ADRY Kelley on 03/17/25 08:24 Results Reviewed Results Reviewed: Laboratory Last Values Hgb A1c (Clinic) 6.4 % (4.0-6.0) H 03/17/25 08:11 Coding Level of Care Code Est Pt Level 4 (39241) Complex EM visit Add On G2211 Diagnoses New onset type 2 diabetes mellitus E11.9 Additional Codes PHQ-9 - 75431 - PHQ-9 Billing: Yes ([id number]) Assessment & Plan Assessment & Plan (1) New onset type 2 diabetes mellitus: Code(s): E11.9 - Type 2 diabetes mellitus without complications Category: Medical Plan: A1c is in range. Continue current dosage of metformin. Plan History of Present Illness The patient is a 54-year-old female presenting with numbness and tingling in her hands. 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 Symptoms appear to be related to her occupational activities and have been present for some time. The patient indicates engaging in regular physical activity, including cardio exercises. She currently feels no pain in the hand. In addition to seeking management for her hand symptoms, the patient requires a refill for her Metformin, vital for managing her Type 2 Diabetes Mellitus. She regularly takes [id number]-[id number] vitamin D, biotin, and B12. Her most recent mammogram took place last year, while the last colonoscopy was conducted two years ago. 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 - Exercise: Engages in cardio exercises regularly and is considering yoga. - Supplement Usage: Regular use of rrll-dwn-nikizqn supplements such as vitamin D, biotin, and B12. Review of Systems - Neurological: Reports numbness and tingling in hands. - Musculoskeletal: Denies pain in hands. - Respiratory: Denies respiratory issues. - Cardiovascular: Denies cardiovascular symptoms. Physical Exam General: Cooperative and healthy appearing Nutritional Appearance: Well nourished Orientation/consciousness: Patient oriented x3 Limitations: No limitations Head: Normal to inspection General: Appearance normal, both eyes and all related structures Neck: Normal visual inspection Chest: Normal palpation of entire chest wall Respiratory: N ormal respiratory effort Neurology: Patient oriented x3, reports numbness and tingling in one, two, three fingers, sometimes with big pain, likely related to work. Results - Labs: Blood work was done today; results pending. Plan The patient will continue with regular exercise and possibly incorporate yoga to help manage hand symptoms. Hdon-anl-veejfer ibuprofen is advised for relief. A prescription refill for Metformin has been sent to the pharmacy, and the patient has been educated on maintaining regular use of her medication. I will provide a mammogram order, and the patient's recent blood work will be reviewed for diabetes management and overall health monitoring. Patient was informed and verbally consented to the use of an ambient scribe for clinic note documentation during this visit. Discussion Notes During the visit, I discussed the likely work-related nature of the patient's hand symptoms and recommended regular exercise and the potential benefits of yoga. We reviewed her adherence to Metformin, highlighting the importance of not missing doses and reiterated how to manage prescription refills. For her ongoing diabetes care, I will review her recent lab results. We also talked about scheduling her next mammogram and discussed her previous colonoscopy. We discussed the use of ibuprofen for symptom relief and maintaining her current supplement regimen. Patient Instructions - Continue regular cardio exercises and consider adding yoga. - Take ibuprofen as needed for hand discomfort. - Ensure daily adherence to Metformin; contact pharmacy for refills in time. - Follow through with blood work results and discuss with the provider. - An order for a mammogram will be provided. - Monitor symptoms and seek re-evaluation if they worsen or change significantly. Orders: Orders AMB Hemoglobin A1c Today E11.9 - Type 2 diabetes mellitus without complications MM screening mammo BI Today Z12.31 - Encounter for screening mammogram for malignant neoplasm of breast
== END 2025-03-17 08:36 | disposition home or self-care (01) ==
LOC: HO.HMCH 07:47
PROVIDERS: PCP Internal Medicine; Visit Provider Internal Medicine
DX: E11.9 Type 2 diabetes mellitus without complications (principal)

== ENCOUNTER → 2025-03-17 07:46 | Outpatient (BNVA) | payer OTHER, SELFPAY | PROVIDERS: PCP Internal Medicine; Visit Provider Internal Medicine | DX: E11.9 Type 2 diabetes mellitus without complications (principal); Z79.84 Long term (current) use of oral hypoglycemic drugs | CPT/HCPCS: 83036; 96127; 99212 ==

== ENCOUNTER 2025-07-08 07:26 | Outpatient (REF) | payer OTHER, SELFPAY ==
--- OUTSIDE RECORDS SUMMARY | 2025-07-08 07:28 | XMS_ITS | Clinical Summary ---
Author Organization [facility] Address [address] [place] [address] Care Team Providers Care Motorcycle Designer Name Role Phone Danyell Jefferson [facility] Primary Care Provider Source Comments PLEASE NOTE, if this patient [...] 86 09/04/2017 9:00 AM EDT Temperature 36.1 C (97 F) 09/23/2014 9:11 AM EDT Respiratory Rate 16 09/04/2017 9:00 AM EDT Oxygen Saturation - - Inhaled Oxygen Concentration - - Weight 53.1 kg (117 lb) 09/04/2017 9:00 AM EDT Height 157.5 cm (5' 2 ) 09/04/2017 9:00 AM EDT Body Mass Index 21.4 09/04/2017 9:00 AM EDT Plan of Treatment Not on file Insurance [place] Care Teams Motorcycle Designer Relationship Specialty Start Date End Date Danyell Jefferson FNP [address] [place] [id number] PCP - General 01/26/19
== END 2025-07-08 07:27 | disposition home or self-care (01) ==
LOC: HO.MAMMO 07:26
PROVIDERS: PCP Internal Medicine; Visit Provider Advanced Practice Midwife
DX: Z12.31 Encounter for screening mammogram for malignant neoplasm of breast (principal)
CPT/HCPCS: 77063; 77067

== ENCOUNTER → 2025-07-08 07:45 | Outpatient (BNV) | payer OTHER, SELFPAY | PROVIDERS: PCP Internal Medicine; Visit Provider Internal Medicine | DX: Z12.31 Encounter for screening mammogram for malignant neoplasm of breast (principal) | CPT/HCPCS: 77063; 77067 ==

== ENCOUNTER 2025-09-01 08:06 | Outpatient (AMB) | payer OTHER, SELFPAY ==
[2025-09-01 08:12] VITALS: BP 118/70; PULSE 81; TEMP 36.2; O2SAT 97; BMI 22.9
--- NOTE | 2025-09-01 08:12 | A.OFFPC_ITS ---
Vital Signs 09/01/25 08:12 Height 5 ft 1 in Weight 121 lb 6 oz BMI 22.9 BP 118/70 Blood Pressure Location Lt brachial Position Sitting Pulse 81 Pulse Source Pulse Oximeter Temp 97.1 F Temp Source Temporal Artery Scan Pulse Oximetry (%) 97 Oxygen Delivery Method Room Air Intake Visit Reasons: MRI follow up Allergies No Known Allergies Allergy (Verified 09/01/25 08:18) Tobacco use date assessed: 09/01/25 Dental Screening Dental Screen Date: 09/01/25 Did you have a dental visit in the last 12 months?: Yes Did you have a dental problem in the last 6 months where you did not have access to dental care?: No Was dental information given to patient?: Patient has dentist [facility] Medical History Stage 1 presymptomatic normoglycemic type 1 prediabetes Surgical History History of 3 sections Family History Mother No problems noted. Father No problems noted. Sister No problems noted. Sister No problems noted. Sister No problems noted. Brother No problems noted. Brother No problems noted. Daughter No problems noted. Daughter No problems noted. Daughter No problems noted. Social History Housing: House Alcohol intake: never Patient Tobacco Use Status: Never used Tobacco Tobacco use type: Cigarette e-Cigarette/Vaping Use: Never Used Second Hand Smoke Exposure: No service: No Current occupational status: employed Cognitive needs: No Hearing needs: No Vision needs: Yes Questionnaire PHQ-9 Over the last 2 weeks, how often have you been bothered by any of the following problems? 1. Little interest or pleasure in doing things: not at all 2. Feeling down, depressed, or hopeless: not at all 3. Trouble falling or staying asleep, or sleeping too much: not at all 4. Feeling tired or having little energy: several days 5. Poor appetite or overeating: not at all 6. Feeling bad about yourself - or that you are a failure or have let yourself or your family down: not at all 7. Trouble concentrating on things, such as reading the newspaper or watching television: not at all 8. Moving or speaking so slowly that other people could have noticed. Or the opposite - being so fidgety or restless that you have been moving around a lot more than usual: not at all 9. Thoughts that you would be better off or of hurting yourself in some way: not at all Total score: 1 Source: Developed by Drs. Nicolas Garcia, Honey Castañeda, Sedrick Amaya and colleagues, with an educational bipin from [employer]. Thrive Questionnaire Date Thrive assessed: 03/17/25 I am a: Patient What is your living situation today?: I have a steady place to live Within the past 12 months, did the food you bought not last and you didn't have the money to get more?: Never true Within the past 12 months, did you worry whether your food would run out before you got money to buy more?: Never true Do you have trouble paying for medicines?: No Do you have trouble getting transportation to medical appointments?: No Do you have trouble paying your heating and electricity bill?: No Do you have trouble taking care of your child, family member or friend?: No Do you have trouble with day-to-day activities such as bathing, preparing meals, shopping, managing finances, etc.?: No Are you currently unemployed and looking for a job?: No Are you interested in more education?: No Please select the resources that you would like help with: None Currently or been in a relationship where the following occur: No concerns reported THRIVE Score: 0 AUDIT C Alcohol Use Questionnaire (AUDIT-C) 1. How often do you have a drink containing alcohol?: Never 3. How often do you have six or more drinks on one occasion?: Never Total Score: 0 SHANNON-7 AMB Questionnaire SHANNON-7 Date SHANNON - 7 assessed: 03/17/25 Feeling nervous, anxious, or on edge: 0 = Not at all Not being able to stop or control worryin = Not at all Worrying too much about different things: 0 = Not at all Trouble relaxin = Not at all Being so restless that it is hard to sit still: 0 = Not at all Becoming easily annoyed or irritable: 0 = Not at all Feeling afraid as if something awful might happen: 0 = Not at all Total SHANNON-7 score (0-4 normal; 5-9 mild; 10-14 moderate; 15-21 severe): 0 Source: Developed by Drs. Nicolas Garcia, Honey Castañeda, Sedrick Amaya and colleagues, with an educational bipin from [employer]. Physical exam (Primary Care) Vital Signs: Last Vital Signs Temp 97.1 F 09/01/25 08:12 Pulse 81 09/01/25 08:12 BP 118/70 09/01/25 08:12 Pulse Ox 97 09/01/25 08:12 Oxygen Delivery Method Room Air 09/01/25 08:12 BMI result Body Mass Index 22.9 Tobacco/Smoking Status: Tobacco use Status Tobacco use date assessed 09/01/25 09/01/25 08:19 Patient Tobacco Use Status Never used Tobacco 09/01/25 08:13 Tobacco use type Cigarette 09/01/25 08:13 e-Cigarette/Vaping Use Never Used 09/01/25 08:13 PHQ-9: PHQ-9 Score PHQ-9: Total score 1 09/01/25 08:13 Thrive Assessment: Date of Thrive Assessment Date Thrive assessed 03/17/25 09/01/25 08:13 Currently or been in a relationship where the following occur: No concerns reported Results AMB Hemoglobin A1c AMB Hemoglobin A1c 7.0 % Last Edit by Sylvia Walls CMA on 09/01/25 08:26 Results Reviewed Results Reviewed: Laboratory Last Values Hgb A1c (Clinic) 7.0 % (4.0-6.0) H 09/01/25 08:19 Coding Level of Care Code Est Pt Level 4 (73018) Complex EM visit Add On G2211 Diagnoses Thyroid nodule incidentally noted on imaging study E04.1 Assessment & Plan Assessment & Plan (1) Thyroid nodule incidentally noted on imaging study: Code(s): E04.1 - Nontoxic single thyroid nodule Plan: History of Present Illness - The patient is a 55-year-old female presenting with neck, back, and arm pain, as well as management of diabetes mellitus. - Cervical radiculopathy: Approximately 2-3 months ago, the patient experienced severe pain in her neck, back, and arm, leading to urgent care and orthopedic referral. - An MRI suggested nerve impingement at C5, and she was prescribed prednisone and medications for nerve and muscle pain. - She reports an 80% improvement in symptoms after taking supplement o for six weeks and performing exercises. - Diabetes mellitus: The patient has been on metformin, but her blood sugar levels have risen slightly, prompting an increase in dosage to 500 mg twice daily. - X ray eval for neck pain, showed a thyroid nodule Social History - Exercise: The patient engages in regular exercises, including neck movements and resistance exercises, to manage her symptoms. Review of Systems - Musculoskeletal: Reports severe neck, back, and arm pain, now improved by 80% with supplements and exercise. - Neurological: Reports occasional numbness but no pain currently. - Endocrine: Reports elevated blood sugar levels, managed with metformin. Physical Exam General: Cooperative and healthy appearing Nutritional Appearance: Well nourished Orientation/consciousness: Patient oriented x3 Limitations: No limitations Head: Normal to inspection General: Appearance normal, both eyes and all related structures Neck: Normal visual inspection Chest: Normal palpation of entire chest wall Respiratory: N ormal respiratory effort Neurology: Patient oriented x3, sometimes feels a little numb but no pain or hurt. Results - Imaging: MRI indicated possible nerve impingement at C5 level. - X rays shows a thyroid nodule Plan - Maintain exercise routine for cervical radiculopathy management. - Adjust metformin to 500 mg twice daily for improved glycemic control. - US of thyroid ordered for delineation of the nodule Discussion Notes I discussed with the patient the importance of continuing her exercise routine to manage her cervical radiculopathy symptoms effectively. We agreed to increase her metformin dosage to better control her blood sugar levels. Patient Instructions - Continue your exercise routine to help with neck and back pain. - Take metformin 500 mg twice daily to manage your blood sugar. - Orders: Orders AMB Hemoglobin A1c Today Z13.9 - Encounter for screening, unspecified US thyroid Today E04.1 - Nontoxic single thyroid nodule Medications: Changed From metformin ER 500 mg PO QPM 90 tabs 1RF To metformin ER 500 mg PO BID 180 tabs 1RF 90 days
--- OUTSIDE RECORDS SUMMARY | 2025-09-01 08:14 | XMS_ITS | Clinical Summary ---
Author Organization [facility] Address [address] [place] [address] Care Team Providers Care Senior Supply Chain Analyst Name Role Phone Danyell Jefferson [facility] Primary Care Provider [phone] Source Comments PLEASE NOTE, if this patient [...] on file Insurance [place] MEDICA[place] Care Teams Senior Supply Chain Analyst Relationship Specialty Start Date End Date Danyell Jefferson FNP [address] [place] [phone] PCP - General 01/26/19
== END 2025-09-01 08:44 | disposition home or self-care (01) ==
LOC: HO.HMCH 08:07
PROVIDERS: PCP Internal Medicine; Visit Provider Internal Medicine
DX: E04.1 Nontoxic single thyroid nodule (principal); Z13.9 Encounter for screening, unspecified

== ENCOUNTER → 2025-09-01 08:06 | Outpatient (BNVA) | payer OTHER, SELFPAY | PROVIDERS: PCP Internal Medicine; Visit Provider Internal Medicine | DX: E04.1 Nontoxic single thyroid nodule (principal) | CPT/HCPCS: 83036; 99212 ==

== ENCOUNTER 2025-11-15 08:29 | Outpatient (REF) | payer OTHER, SELFPAY ==
--- NOTE | ~2025-11-15 | US_ITS ---
EXAMINATION: US THYROID HISTORY: E04.1 - Nontoxic single thyroid nodule TECHNIQUE: Real-time grayscale ultrasound imaging was performed and images were reviewed. COMPARISON: There are no prior studies available for comparison. FINDINGS: SIZE: The right thyroid lobe measures 4.8 x 1.4 x 1.9 cm. The left thyroid lobe measures 4.9 x 1.0 x 1.9 cm. The isthmus measures 2 mm. FLOW: Flow to the gland is normal. ECHOGENICITY: The echotexture of the gland is homogeneous. NODULES: Multiple nodules are identified as described below: Nodule #: 1 Location: Right upper pole measuring 1.3 x 0.7 x 0.8 cm. Shape: Wider than tall (0 points) Margins: Smooth (0 points) Echotexture: Hypoechoic (2 points) Composition: Solid (2 points) Calcifications: Punctate calcifications (3 points) Total points: 7 TIRADS: TR5: Highly suspicious. Nodule #: 2 Location: Midportion of the right thyroid lobe measuring 6 x 5 x 5 mm. Shape: Wider than tall (0 points) Margins: Smooth (0 points) Echotexture: Indeterminate (1 point) Composition: Mixed (1 point) Calcifications: None (0 points) Total points: 2 TIRADS: TR2: Not suspicious Nodule #: 3 Location: Upper pole of the left thyroid lobe measuring 7 x 5 x 8 mm. Shape: Wider than tall (0 points) Margins: Smooth (0 points) Echotexture: Indeterminate (1 point) Composition: Mixed (1 point) Calcifications: None (0 points) Total points: 2 TIRADS: TR2: Not suspicious US/US thyroid IMPRESSION: Single suspicious nodule at the upper pole of the right thyroid lobe for which ultrasound-guided fine-needle aspiration is recommended. ACR TI-RADS Guidelines TR1 (0 points): Benign. No follow-up or biopsy required TR2 (2 points): Not Suspicious. No biopsy or follow up indicated TR3 (3 points): Mildly Suspicious. FNA if >= 2.5 cm, Follow if >= 1.5 cm TR4 (4-6 points): Moderately Suspicious. FNA if >= 1.5 cm, Follow if >= 1.0 cm TR5 (>=7 points): Highly Suspicious. FNA if >= 1.0 cm, Follow if >= 0.5 cm Electronically signed by: Nicolas Ambrocio MD 11/15/2025 09:18 AM [facility]
== END 2025-11-15 08:30 | disposition home or self-care (01) ==
LOC: HO.US 08:29
PROVIDERS: PCP Internal Medicine; Visit Provider Internal Medicine
DX: E04.1 Nontoxic single thyroid nodule (principal)
CPT/HCPCS: 76536

== ENCOUNTER → 2025-11-15 08:34 | Outpatient (BNV) | payer OTHER, SELFPAY | PROVIDERS: PCP Internal Medicine; Visit Provider Radiology Diagnostic Radiology | DX: E04.1 Nontoxic single thyroid nodule (principal) | CPT/HCPCS: 76536 ==

== ENCOUNTER 2025-11-17 08:36 | Outpatient (REF) | payer OTHER, SELFPAY ==
[2025-11-17 10:16] LABS: Free T4 (Free Thyroxine) 0.97 ng/dL (0.71-1.85); Thyroid Stimulating Hormone 1.77 uIU/mL (0.32-4.0)
== END 2025-11-17 08:37 | disposition home or self-care (01) ==
LOC: HO.LAB 08:36
PROVIDERS: PCP Internal Medicine; Visit Provider Internal Medicine
DX: E04.1 Nontoxic single thyroid nodule (principal)
CPT/HCPCS: 36415; 84436; 84439; 84443